=== PATIENT | male | born 1985 | race Caucasian/White ===

== ENCOUNTER 2017-01-24 11:39 | Emergency (ER) | payer SELFPAY ==
[2017-01-24 11:59] VITALS: BP 147/81
[2017-01-24] MEDS ORDERED: Naproxen TAB* 250 MG PO ONE (12:50)
--- NOTE | 2017-01-24 12:53 | UC ---
Back Pain HPI - HPI Summary HPI Summary: Pt fell onto bottom from standing position about 6:30 am after slipping on ice. Currently having "sharp" midline lumbar pain. Had fusion with rods in 2008 by surgeon in [place]. denies and radiating pain, numbness, or problems with bowel or bladder. Saw Dr. Butt for chronic pain until fall 2015. - History of Current Complaint Chief Complaint: UCBackPain Stated Complaint: BACK [id number] Time Seen by Provider: 01/24/17 12:34 Hx Obtained From: Patient Onset/Duration: Sudden Onset Timing: Constant Severity Initially: Mild Severity Currently: Mild Back Pain: Is Discrete @ Character: Sharp Aggravating: Movement, Walking Associated Signs And Symptoms: Positive: Negative. Negative: Swelling, Bruising , Weakness, Numbness, Tingling, Bladder Incontinence, Bowel Incontinence - Allergies/Home Medications Allergies/Adverse Reactions: Allergies Allergy/AdvReac Type Severity Reaction Status Date / Time No Known Allergies Allergy Verified 01/24/17 11:58 PMH/Surg Hx/FS Hx/Imm Hx Endocrine History Of: Denies: Diabetes, Thyroid Disease Cardiovascular History Of: Denies: Cardiac Disorders, Hypertension Respiratory History Of: Denies: COPD, Asthma GI/ History Of: Denies: Ulcer - Surgical History Surgical History: Yes Surgery Procedure, Year, and Place: lumbar fusion with di in place- some nerve damage in legs, RIGHT ELBOW LIGAMENT REPAIRED, LEFT PATELLA REPAIR - Family History Known Family History: Positive: None - Social History Occupation: Employed Full-time Alcohol Use: Occasionally Substance Use Type: None Substance Use Comment - Amount & Last Used: GABAPENTIN AND ALPRAZOLAM Smoking Status (MU): Light Every Day Tobacco Smoker Type: Cigarettes Amount Used/How Often: 1/3 ppd Household Exposure Type: Cigarettes Review of Systems Constitutional: Negative Skin: Negative Eyes: Negative ENT: Negative Respiratory: Negative Cardiovascular: Negative Gastrointestinal: Negative Genitourinary: Negative Motor: Negative Neurovascular: Negative Musculoskeletal: Arthralgia Neurological: Negative Psychological: Negative All Other Systems Reviewed And Are Negative: Yes Physical Exam Triage Information Reviewed: Yes Appearance: Well-Appearing, No Pain Distress, Well-Nourished Vital Signs: Initial Vital Signs Temp 98.9 F 01/24/17 11:50 Pulse 80 01/24/17 11:50 Resp 18 01/24/17 11:50 BP 147/81 01/24/17 11:50 Vital Signs Reviewed: Yes Eye Exam: Normal Eyes: Positive: Conjunctiva Clear ENT Exam: Normal ENT: Positive: Normal ENT inspection, Hearing grossly normal, Pharynx normal, TMs normal Dental: Positive: Gross Decay/Caries @ Neck exam: Normal Neck: Positive: Supple, Nontender, No Lymphadenopathy Respiratory Exam: Normal Respiratory: Positive: Chest non-tender, Lungs clear, Normal breath sounds, No respiratory distress, No accessory muscle use Cardiovascular Exam: Normal Cardiovascular: Positive: RRR, No Murmur Musculoskeletal Exam: Other - no bony tenderness Musculoskeletal: Positive: Strength Intact, ROM Intact Neurological Exam: Normal, Other - DTRs 2+ BLE Neurological: Positive: Alert Psychological Exam: Normal Skin Exam: Normal Back Pain Course/Dx - Differential Dx/Diagnosis Provider Diagnoses: Low back strain. elevated blood pressure due to discomfort. low back contusion Discharge - Discharge Plan Condition: Stable Disposition: HOME Prescriptions: Ketorolac TAB (NF) [Toradol TAB (NF)] 10 mg PO TID #15 tab Patient Education Materials: Low Back Strain (ED), Contusion in Adults (ED) Referrals: Chris Farley NP [Primary Care Provider] - 2 Weeks Additional Instructions: See your primary care provider or return here if pain persists after 2 weeks.
--- NOTE | 2017-01-24 13:16 | RAD ---
HISTORY: Low back pain, trauma COMPARISONS: July 13, 2016 VIEWS: 5 , Frontal, lateral, coned-down lateral sacral, and bilateral oblique views of the lumbar spine. FINDINGS: ALIGNMENT: The alignment is normal. VERTEBRAL BODIES: The patient is status post spinal fusion. Pedicle rods and screws are noted from T10 through L2. There is no hardware failure or osteolysis. There is no displaced fracture or dislocation. JOINTS: The facet joints are normal. INTERVERTEBRAL DISCS: The intervertebral disc heights are normal. SOFT TISSUE: Unremarkable. OTHER: The pelvis is unremarkable. The lung bases are clear. IMPRESSION: POST SURGICAL CHANGE. NO ACUTE OSSEOUS INJURY. IF SYMPTOMS PERSIST, RECOMMEND REPEAT IMAGING
== END 2017-01-24 13:47 | disposition home or self-care (01) ==
LOC: UCCORT 11:39
DX: S39.012A Strain of muscle, fascia and tendon of lower back, initial encounter (principal); S30.0XXA Contusion of lower back and pelvis, initial encounter; W00.0XXA Fall on same level due to ice and snow, initial encounter; Y93.9 Activity, unspecified; Y92.9 Unspecified place or not applicable; R03.0 Elevated blood-pressure reading, without diagnosis of hypertension; F17.210 Nicotine dependence, cigarettes, uncomplicated
CPT/HCPCS: 72110; 99212; A9270-GY; G0463